=== PATIENT | male | born 1965 | race Caucasian/White ===

== ENCOUNTER 2020-09-23 14:47 | Inpatient (IN) | payer MEDICARE ==
[~2020-09-23] VITALS: Ht 182.9 cm; Wt 100.8 kg
[2020-09-23 20:31] LABS: HEMOGLOBIN 9.8 gm/dl (14.0-17.5); RED BLOOD COUNT 3.46 M/UL (4.20-5.50); WHITE BLOOD COUNT 18.2 K/UL (4.5-11.0)
[2020-09-24 05:17] LABS: BUN/CREATININE RATIO 18 (0-10)
[2020-09-24 07:14] LABS: HEMOGLOBIN 9.1 gm/dl (14.0-17.5); RED BLOOD COUNT 3.21 M/UL (4.20-5.50)
[2020-09-25 05:02] LABS: RED BLOOD COUNT 3.5 M/UL (4.20-5.50); WHITE BLOOD COUNT 12.7 K/UL (4.5-11.0)
[2020-09-26 03:39] LABS: HEMOGLOBIN 9.8 gm/dl (14.0-17.5); RED BLOOD COUNT 3.45 M/UL (4.20-5.50); WHITE BLOOD COUNT 15.4 K/UL (4.5-11.0)
[2020-09-27 09:37] LABS: RED BLOOD COUNT 3.87 M/UL (4.20-5.50); WHITE BLOOD COUNT 24.1 K/UL (4.5-11.0)
[2020-09-28 04:25] LABS: WHITE BLOOD COUNT 27.9 K/UL (4.5-11.0)
[2020-09-28 04:26] LABS: HEMOGLOBIN 8.6 gm/dl (14.0-17.5); RED BLOOD COUNT 3.07 M/UL (4.20-5.50)
[2020-09-29 04:59] LABS: HEMOGLOBIN 8.6 gm/dl (14.0-17.5); RED BLOOD COUNT 3.02 M/UL (4.20-5.50)
[2020-09-29 05:03] LABS: WHITE BLOOD COUNT 19.8 K/UL (4.5-11.0)
[2020-09-30 05:12] LABS: HEMOGLOBIN 8.7 gm/dl (14.0-17.5); RED BLOOD COUNT 3.12 M/UL (4.20-5.50); WHITE BLOOD COUNT 16.2 K/UL (4.5-11.0)
[2020-10-01 05:04] LABS: HEMOGLOBIN 8.6 gm/dl (14.0-17.5); RED BLOOD COUNT 3.06 M/UL (4.20-5.50); WHITE BLOOD COUNT 12.8 K/UL (4.5-11.0)
[2020-10-02 05:27] LABS: HEMOGLOBIN 8.4 gm/dl (14.0-17.5); RED BLOOD COUNT 2.93 M/UL (4.20-5.50); WHITE BLOOD COUNT 11.5 K/UL (4.5-11.0)
== END 2020-10-02 14:31 | disposition expired | DRG 870 ==
LOC: CCU 19:41
PROVIDERS: Internal Medicine; Internal Medicine Nephrology; Internal Medicine Pulmonary Disease; ADMIT Internal Medicine
PROC: 0BH17EZ Insertion of Endotracheal Airway into Trachea, Via Natural or Artificial Opening (ICD-10-PCS; principal; 2020-09-23)
PROC: 5A1955Z Respiratory Ventilation, Greater than 96 Consecutive Hours (ICD-10-PCS; 2020-09-23)
PROC: 0DH67UZ Insertion of Feeding Device into Stomach, Via Natural or Artificial Opening (ICD-10-PCS; 2020-09-24)
PROC: 3E0G76Z Introduction of Nutritional Substance into Upper GI, Via Natural or Artificial Opening (ICD-10-PCS; 2020-09-24)
DX: A41.9 Sepsis, unspecified organism (principal); R65.21 Severe sepsis with septic shock; J96.01 Acute respiratory failure with hypoxia; J69.0 Pneumonitis due to inhalation of food and vomit; N17.0 Acute kidney failure with tubular necrosis; G93.41 Metabolic encephalopathy; E87.2 Acidosis; J84.9 Interstitial pulmonary disease, unspecified; G91.9 Hydrocephalus, unspecified; G93.1 Anoxic brain damage, not elsewhere classified; H40.9 Unspecified glaucoma; M54.2 Cervicalgia; D64.9 Anemia, unspecified; R40.2430 Glasgow coma scale score 3-8, unspecified time; R57.0 Cardiogenic shock; E78.5 Hyperlipidemia, unspecified; L89.151 Pressure ulcer of sacral region, stage 1; E11.65 Type 2 diabetes mellitus with hyperglycemia; I12.9 Hypertensive chronic kidney disease with stage 1 through stage 4 chronic kidney disease, or unspecified chronic kidney disease; I48.0 Paroxysmal atrial fibrillation; N40.0 Benign prostatic hyperplasia without lower urinary tract symptoms; K21.9 Gastro-esophageal reflux disease without esophagitis; E87.5 Hyperkalemia; G89.4 Chronic pain syndrome; N18.9 Chronic kidney disease, unspecified; Z20.822 Contact with and (suspected) exposure to COVID-19; D72.829 Elevated white blood cell count, unspecified; M19.90 Unspecified osteoarthritis, unspecified site; M51.36 Other intervertebral disc degeneration, lumbar region; Z90.49 Acquired absence of other specified parts of digestive tract; Z87.891 Personal history of nicotine dependence; Q85.00 Neurofibromatosis, unspecified; Z79.4 Long term (current) use of insulin; Z79.82 Long term (current) use of aspirin; Z79.899 Other long term (current) drug therapy; Z68.30 Body mass index [BMI] 30.0-30.9, adult; E11.22 Type 2 diabetes mellitus with diabetic chronic kidney disease
CPT/HCPCS: ECHO; 36415; 36600; 70450; 71045; 80048; 80053; 80202; 81001; 82009; 82570; 82803; 82962; 83036; 83605; 83735; 84100; 84133; 84156; 84300; 85025; 85027; 87040; 87070; 87077; 87081; 87086; 87186; 87205; 89050; 93005; 93306; 94003; 94640; 94664; 94760; 95819; A6212; C9113; J0360; J1644; J1650; J1940; J2020; J2060; J2185; J2250; J2270; J2704; J7030; J7040; J7070; P9047; U0002